=== PATIENT | female | born 1975 | race Caucasian/White ===

== ENCOUNTER 2021-12-17 20:26 | Emergency (ER) | payer MEDICARE, MEDICAID ==
[~2021-12-17] VITALS: Ht 170.2 cm; Wt 96.8 kg
[2021-12-17 20:35] VITALS: TEMP 98
[2021-12-17] MEDS ORDERED: PROZAC60 MG (20:42)
[2021-12-17] MEDS ORDERED: AMOXICILLIN 50500 MG PO (20:43)
[2021-12-17] MEDS ORDERED: ABILIFY20 MG PO (20:43)
[2021-12-17] MEDS ORDERED: K-TAB10 PO (20:43)
[2021-12-17] MEDS ORDERED: COZAAR 25MG25 MG/TAB PO (20:44)
[2021-12-17] MEDS ORDERED: HCTZ12.5TAB (20:44)
[2021-12-17 22:39] VITALS: BP 158/94; PULSE 80
== END 2021-12-17 22:39 | disposition home or self-care (01) ==
LOC: COL.ER 20:26
DX: I10 Essential (primary) hypertension (principal); F17.210 Nicotine dependence, cigarettes, uncomplicated; Z28.311 Partially vaccinated for COVID-19; Z79.899 Other long term (current) drug therapy